=== PATIENT | male | born 1990 | race African-American/Black ===

== ENCOUNTER 2017-01-06 19:09 | Emergency (ER) | payer BC ==
[~2017-01-06] VITALS: Ht 193 cm; Wt 94.8 kg
[2017-01-06] MEDS ORDERED: LIDODERM 5% P1 PATCH TD (20:52)
[2017-01-06] MEDS ORDERED: AUGMENTIN875 MG PO (20:52)
[2017-01-06] MEDS ORDERED: MOTRIN800 MG PO (20:52)
[2017-01-06] MEDS ORDERED: FLEXERIL10 MG PO (20:52)
[2017-01-06 21:32] VITALS: BP 138/97
== END 2017-01-06 21:31 | disposition home or self-care (01) ==
LOC: EME 19:09 → EDSEX 19:09 → RME 19:09
DX: M54.12 Radiculopathy, cervical region (principal); R20.0 Anesthesia of skin; J01.90 Acute sinusitis, unspecified
CPT/HCPCS: 70450; 80053; 85027; 99281; 99283